=== PATIENT | female | born 1970 | race African-American/Black ===

== ENCOUNTER 2019-04-29 05:40 | Emergency (ER) | payer MEDICAID ==
[~2019-04-29] VITALS: Ht 165.1 cm; Wt 131.5 kg
[2019-04-29] MEDS ORDERED: KETOROLAC 30MG/ML VIAL IM STA (07:06)
[2019-04-29] MEDS ORDERED: PREDNISONE 20MG TABLET PO ONE (07:15)
[2019-04-29] MEDS ORDERED: ALBUTEROL 6.7GM HFA INHALER ORI ONE (07:30)
[2019-04-29] MEDS ORDERED: LOSARTAN POTASSIUM 50 MG TABLET PO ONE (07:45)
[2019-04-29 08:50] LABS: CLARITY URINE CLEAR (CLEAR); COLOR URINE YELLOW (YELLOW); KETONES URINE 1+ (NEGATIVE); LEUKOCYTE ESTERASE URINE NEGATIVE (NEGATIVE); NITRITE URINE NEGATIVE (NEGATIVE); OCCULT BLOOD URINE NEGATIVE (NEGATIVE); PROTEIN URINE 1+ (NEGATIVE); SPECIFIC GRAVITY URINE 1.049 (1.005-1.030); UROBILINOGEN URINE 0.2 E.U./dL (0.2-1.0)
[2019-04-29 09:05] LABS: BASOPHILS % 0.6 % (0.0-2.0); EOSINOPHILS % 2.9 % (0.0-5.0); HEMATOCRIT. 47.9 % (36.0-48.0); HEMOGLOBIN. 16.2 g/dL (12.0-16.0); LYMPHOCYTES % 24.1 % (20.0-50.0); MEAN CORPUSCULAR HEMOGLOBIN 31.9 pg (28.0-32.0); MEAN CORPUSCULAR VOLUME 94.4 fL (81.0-99.0); MEAN PLATELET VOLUME 9.1 fl (7.4-10.4); MONOCYTES % 7.2 % (2.0-8.0); NEUTROPHILS % 65.2 % (40.0-76.0); PLATELET 223 x1000/uL (130-400); RED BLOOD CELL COUNT 5.08 mill/uL (4.2-5.4); RED CELL DISTRIBUTION WIDTH 13.6 % (11.6-14.6)
[2019-04-29 09:11] LABS: CHLORIDE 101 mEq/L (98-107)
[2019-04-29] MEDS ORDERED: ALBUTEROL (0.083%) 2.5MG/3ML NEB HHN ONE (09:30)
[2019-04-29 10:16] VITALS: BP 148/87
[2019-05-02 07:08] LABS: NEISSERIA GONORRHOEAE NAA Negative (Negative)
== END 2019-04-29 10:22 | disposition home or self-care (01) ==
LOC: ER 05:40
DX: J06.9 Acute upper respiratory infection, unspecified (principal); N76.0 Acute vaginitis; E11.9 Type 2 diabetes mellitus without complications; I10 Essential (primary) hypertension; F17.210 Nicotine dependence, cigarettes, uncomplicated; F14.10 Cocaine abuse, uncomplicated; Z88.0 Allergy status to penicillin; Z88.2 Allergy status to sulfonamides
CPT/HCPCS: 36415; 71045; 80053; 81003; 81025; 85025; 87086; 87210; 87491; 87591; 94640; 96372; 99284; J1885; J7512; Z7610

== ENCOUNTER 2019-05-02 11:39 | Emergency (ER) | payer MEDICAID ==
[~2019-05-02] VITALS: Ht 165.1 cm; Wt 127.0 kg
[2019-05-02 12:08] VITALS: BP 146/90
[2019-05-02] MEDS ORDERED: METF-414 PO (12:08)
[2019-05-02] MEDS ORDERED: LOSA50TA41 PO (12:08)
[2019-05-02] MEDS ORDERED: NITR-87 PO (12:08)
[2019-05-02 12:39] LABS: CLARITY URINE CLEAR (CLEAR); COLOR URINE YELLOW (YELLOW); KETONES URINE 1+ (NEGATIVE); LEUKOCYTE ESTERASE URINE 1+ (NEGATIVE); NITRITE URINE NEGATIVE (NEGATIVE); OCCULT BLOOD URINE NEGATIVE (NEGATIVE); PROTEIN URINE NEGATIVE (NEGATIVE); SPECIFIC GRAVITY URINE 1.044 (1.005-1.030)
[2019-05-02] MEDS ORDERED: FLUCONAZOLE 100MG TABLET PO ONE (12:45)
[2019-05-02] MEDS ORDERED: INSULIN REGULAR (HUMULIN R) 300UNITS/3ML SUBCUT ONE (12:45)
== END 2019-05-02 13:42 | disposition home or self-care (01) ==
LOC: ER 11:39
DX: B37.3 Candidiasis of vulva and vagina (principal); N76.0 Acute vaginitis; E11.65 Type 2 diabetes mellitus with hyperglycemia; Z88.2 Allergy status to sulfonamides; Z88.1 Allergy status to other antibiotic agents; Z88.0 Allergy status to penicillin; Z79.899 Other long term (current) drug therapy
CPT/HCPCS: 81003; 81025; 82962; 87086; 96372; 99283; J1815